=== PATIENT | male | born 1960 | race Caucasian/White ===

== ENCOUNTER 2018-08-31 07:45 | Day surgery (SDC) | payer MEDICAID ==
[~2018-08-31] VITALS: Ht 177.8 cm; Wt 79.5 kg
[2018-08-31] MEDS ORDERED: METH10T PO (08:54)
[2018-08-31] MEDS ORDERED: METO25TA62 PO (08:54)
[2018-08-31] MEDS ORDERED: MORP15TA PO (08:54)
[2018-08-31] MEDS ORDERED: LISI-646 PO (08:54)
[2018-08-31] MEDS ORDERED: ASPI325T4 PO (08:54)
[2018-08-31] MEDS ORDERED: ANGIOMAX 250 MG VIAL IV ONE (09:25)
[2018-08-31] MEDS ORDERED: fentaNYL CITRATE 100 MCG/2 ML VL ONE (09:26)
[2018-08-31] MEDS ORDERED: VERAPAMIL 2.5MG/ML INJ 2ML VIAL IV ONE (09:26)
[2018-08-31] MEDS ORDERED: SODIUM CHL 0.9% 0 ML ONE (09:26)
[2018-08-31] MEDS ORDERED: MIDAZOLAM HCL 1MG/1ML-2 ML VIAL ONE (09:26)
[2018-08-31] MEDS ORDERED: EPINEPHrine HCL 1 MG/10 ML SYRG ONE (09:28)
[2018-08-31] MEDS ORDERED: LIDOCAINE 2%HCL (LOCAL ANESTH.) INJ 20ML MDV ONE (09:37)
[2018-08-31] MEDS ORDERED: IODIXANOL 320MG/ML 100ML BTL IV ONE ×2 (09:37→10:24)
[2018-08-31] MEDS ORDERED: HEPARIN SODIUM (PORCINE) 5000 UNITS/ML 1ML VIAL ONE (10:29)
== END 2018-08-31 12:40 | disposition home or self-care (01) ==
LOC: CATH 07:45
PROVIDERS: ATTEND Internal Medicine
DX: I25.10 Atherosclerotic heart disease of native coronary artery without angina pectoris (principal); I10 Essential (primary) hypertension; J44.9 Chronic obstructive pulmonary disease, unspecified; C67.9 Malignant neoplasm of bladder, unspecified; Z79.82 Long term (current) use of aspirin; Z79.899 Other long term (current) drug therapy; Z98.890 Other specified postprocedural states
CPT/HCPCS: 93458; A6257; C1769; C1887; C1894; J1644; J2250; J3010; J7030; Q9967; 99152; 99153